=== PATIENT | male | born 1965 | race American Indian/Alaskan Native ===

== ENCOUNTER 2025-09-15 12:39 | Inpatient (IN) | payer MEDICAID ==
[~2025-09-15] VITALS: Ht 170.2 cm; Wt 73.1 kg
[2025-09-15 14:05] VITALS: BP 145/112; PULSE 84; RESP 16; TEMP 98.1; O2SAT 93
[2025-09-15 14:08] VITALS: PULSE 84; RESP 18; O2SAT 98
[2025-09-15] MEDS ORDERED: BICT1TAB PO (14:18)
[2025-09-15] MEDS ORDERED: ATOR20TA50 PO (14:26)
[2025-09-15] MEDS ORDERED: METO-158 PO (14:27)
[2025-09-15] MEDS ORDERED: FURO20TA3 PO (14:28)
[2025-09-15] MEDS ORDERED: LISI-275 PO (14:28)
[2025-09-15] MEDS ORDERED: ASPI-543 PO (14:28)
[2025-09-15] MEDS ORDERED: VANCOMYCIN PER PHARMACY 0 MG IV SCH (15:00)
--- NOTE | 2025-09-15 15:56 | DVH ---
CLINICAL HISTORY: Rule out DVT TECHNIQUE: Color and duplex doppler imagine of the bilateral lower extremity veins was performed. Vessel compression and augmentation if possible was also performed. COMPARISON: US VENOUS EXTREMITY UNILAT on DOS: 03/30/21, US VENOUS EXTREMITY LOWER LTD on DOS: 12/03/20, US-VENOUS EXTREM UNILAT on DOS: 07/08/20 FINDINGS: Right Lower Extremity: Right common femoral vein: Normal compressibility and flow. Right superficial femoral vein: Normal compressibility and flow. Right popliteal vein: Normal compressibility and flow. Left Lower Extremity: Left common femoral vein: Normal compressibility and flow. Left superficial femoral vein: Normal compressibility and flow. Left popliteal vein: Normal compressibility and flow. IMPRESSION: NO SONOGRAPHIC EVIDENCE FOR DEEP VENOUS THROMBOSIS IN THE BILATERAL LOWER EXTREMITY VEINS.
[2025-09-15] MEDS: VANCOMYCIN 1GM/250ML KIT 250 ML IV ONE (15:57)
[2025-09-15 16:07] LABS: Hematocrit 38.3 % (41.0-53.0); Hemoglobin 12.7 g/dL (13.5-17.5); Mean Corpuscular Hemoglobin 32.5 pg (28.0-32.0); Mean Corpuscular Volume 98.2 fL (80.0-100.0); Nucleated Red Blood Cells % 0.1 %
[2025-09-15 17:00] VITALS: BP 170/119; PULSE 87; RESP 17; TEMP 99.6; O2SAT 96
--- NOTE | 2025-09-15 17:28 | DVH ---
CHEST RADIOGRAPH Indication: pre-op Technique: Single frontal view of the chest was obtained COMPARISON: XR CHEST 2 VIEWS on DOS: 08/15/25, XR CHEST 1 VIEW on DOS: 08/10/25, XR CHEST 2 VIEWS on DOS: 07/24/25, XR CHEST 2 VIEWS on DOS: 12/14/24, XR CHEST 1 VIEW on DOS: 02/06/24 FINDINGS: Lines and Tubes: None Lungs: Clear Pleura: No effusion. No pneumothorax. Cardiomediastinal contours: Unremarkable Bones: Unremarkable IMPRESSION: No acute disease.
[2025-09-15 17:58] LABS: Albumin 3.6 g/dL (3.2-4.8); Anion Gap 10 (5-15); BUN/Creatinine Ratio 19.1 (10.0-20.0); Bilirubin, Total 1.1 mg/dL (0.2-1.0); Carbon Dioxide 23 mmol/L (20-31); Glucose 94 mg/dL (74-106); Magnesium 1.7 mg/dL (1.6-2.6); Potassium 4.1 mmol/L (3.5-5.1); Sodium 143 mmol/L (136-145)
[2025-09-15 18:08] LABS: Alanine Aminotransferase 227 U/L (7-40); Alkaline Phosphatase 160 U/L (46-116); Blood Urea Nitrogen 29 mg/dL (9-23); Calcium 8.5 mg/dL (8.7-10.4); Chloride 110 mmol/L (98-107); Total Protein 5.6 g/dL (5.7-8.2)
[2025-09-15] MEDS: ENOXAPARIN SOD 40 MG/0.4 ML SYRINGE SC ONE (19:30)
--- NOTE | 2025-09-15 19:35 | DVHHPRES ---
History of Present Illness Resident Creating Document: ALTON KELLEY RESIDENT History of Present Illness 60-year-old male patient with past medical history of diabetes mellitus type 2, COPD, CHF, CKD, hypertension questionable hyperlipidemia presented to [facility] as a direct admit from Podiatry Clinic. Patient has been visiting Dr. Cristina's clinic for last four months for diabetic foot ulcer on the left side. He has been treated multiple times with courses of antibiotics but had no improvement. Patient went today in the clinic where he was seen by Dr. Cristina and Dr. Weaver referred him to [facility] for I and D which is scheduled tomorrow. He also mentioned of complaint in bilateral lower legs. He denied any chest pain, shortness of breath, fever, chills, nausea, vomiting. Patient has a history of HIV for which he is on anti-retroviral treatment. Past medical history diabetes mellitus type 2, COPD, CHF, CKD, hypertension questionable hyperlipidemia Past surgical history No recent surgery Social history Patient denied current smoking, alcohol, mentioned occasional marijuana, denied any recent recreational drug intake Family history Hypertension, diabetes, heart condition Review of Systems Review of Systems As described in the HPI Allergies: Coded Allergies: Penicillins (Verified Allergy, Mild, RASH, 09/15/25) Medications Current Medications Medications Dose Ordered Sig/Vianca Route Start Time Stop Time Status Last Admin Dose Admin Vancomycin HCl 0 ml @ 0 mls/hr PER PHARMACY IV 09/15/25 15:00 Ceftriaxone Sodium 50 ml @ 100 mls/hr DAILY@09 IV 09/15/25 15:16 Hold Metronidazole 100 ml @ 100 mls/hr Q8HR IV 09/15/25 22:00 Exam Vital Signs Vital Signs Date Time Temp Pulse Resp B/P (MAP) Pulse Ox O2 Delivery O2 Flow Rate FiO2 09/15/25 17:00 99.6 87 17 170/119 (136) 96 99.6 09/15/25 14:08 Room Air* 0 21 Exam Examination General Appearance: Alert, Oriented X3, Cooperative, No acute distress HEENT: EOMI Respiratory: Clear to auscultation, Normal air movement Cardiovascular: Regular rate, Normal S1, Normal S2 Abdominal: Normal bowel sounds Extremities: Bilateral lower leg pain and swelling, 4 cm diabetic foot ulcer on the left foot on the dorsal surface Skin: No rashes, No breakdown Neuro: Normal speech and tone Labs/Xrays Labs Test 09/15/25 17:22 12/5/25 15:45 Range/Units Sodium Level 143 136-145 mmol/L Potassium Level 4.1 3.5-5.1 mmol/L Chloride Level 110 H 98-107 mmol/L Carbon Dioxide Level 23 20-31 mmol/L Anion Gap 10 5-15 Blood Urea Nitrogen 29 H 9-23 mg/dL Creatinine 1.52 H 0.700-1.30 mg/dL Glomerular Filtration Rate Calc 52 >90 mL/min BUN/Creatinine Ratio 19.1 10.0-20.0 Serum Glucose 94 74-106 mg/dL Lactic Acid Level 1.6 0.4-2.0 mmol/L Calcium Level 8.5 L 8.7-10.4 mg/dL Magnesium Level 1.7 1.6-2.6 mg/dL Total Bilirubin 1.1 H 0.2-1.0 mg/dL Aspartate Amino Transferase (AST) 42 H 13-40 U/L Alanine Aminotransferase (ALT) 227 H 7-40 U/L Alkaline Phosphatase 160 H 46-116 U/L Total Protein 5.6 L 5.7-8.2 g/dL Albumin 3.6 3.2-4.8 g/dL White Blood Count 7.2 4.4-10.8 10^3/uL Red Blood Count 3.90 L 4.5-5.90 10^6/uL Hemoglobin 12.7 L 13.5-17.5 g/dL Hematocrit 38.3 L 41.0-53.0 % Mean Corpuscular Volume 98.2 80.0-100.0 fL Mean Corpuscular Hemoglobin 32.5 H 28.0-32.0 pg Mean Corpuscular Hemoglobin Concent 33.1 32.0-36.0 g/dL Red Cell Distribution Width 21.4 H 11.8-14.3 % Platelet Count 167 140-450 10^3/uL Mean Platelet Volume 10.0 6.9-10.8 fL Neutrophils (%) (Auto) 78.1 37.0-80.0 % Lymphocytes (%) (Auto) 11.5 10.0-50.0 % Monocytes (%) (Auto) 8.9 0.0-12.0 % Eosinophils (%) (Auto) 1.1 0.0-7.0 % Basophils (%) (Auto) 0.4 0.0-2.0 % Neutrophils # (Auto) 5.6 1.6-8.6 10 ^3/uL Lymphocytes # (Auto) 0.8 0.4-5.4 10 ^3/uL Monocytes # (Auto) 0.6 0-1.3 10 ^3/uL Eosinophils # (Auto) 0.1 0-0.8 10 ^3/uL Basophils # (Auto) 0 0-0.2 10 ^3/uL Nucleated Red Blood Cells 0.1 % SEPSIS Sepsis Screen Physician Orders * Wound Consult (09/15/25 ) Mrsa Screen (09/15/25 14:57) Admit (09/15/25 14:53) Code Status (09/15/25 14:53) Notify Of Changes From Base (09/15/25 14:53) Paper Sorter And Counter For 24 Hours (09/15/25 14:53) Emergency Dysrhythmia Protocol (09/15/25 14:53) Rhythm Strips Once Every Shift (09/15/25 14:53) Electrocardigram (09/15/25 14:53) Vancomycin Per Pharmacy (09/15/25 15:00) Metronidazole 500mg/100ml (Flagyl 500mg/ (09/15/25 22:00) Chest Xray 1 View (09/15/25 14:53) Bilat Lower Dvt (09/15/25 14:53) Wound Culture W/ Gs (09/15/25 17:39) Blood Culture (09/15/25 17:18) Ceftriaxone 1gm/50ml (Rocephin) (09/15/25 15:16) *Podiatry Consult Ibeth(Dvmg) (09/15/25 17:14) Vancomycin,Random (09/16/25 04:00) Ct L Foot Wo Contrast (09/15/25 19:12) Ct R Foot Wo Contrast (09/15/25 19:12) Ct L Tib Fib Wo Contrast (09/15/25 19:12) Ct R Tib Fib Wo Contrast (09/15/25 19:12) PTPTT (09/15/25 19:19) Urinalysis (09/15/25 19:19) Drug Screen (09/15/25 19:19) Mrsa Screen (09/15/25 19:19) Basic Metabolic Panel (09/16/25 04:00) Complete Blood Count (09/16/25 04:00) Magnesium (09/16/25 04:00) Chest Portable (09/16/25 04:00) Vital Signs Date Time Temp Pulse Resp B/P (MAP) Pulse Ox O2 Delivery O2 Flow Rate FiO2 09/15/25 17:00 99.6 87 17 170/119 (136) 96 99.6 09/15/25 14:08 84 18 98 Room Air* 0 21 09/15/25 14:05 98.1 84 16 145/112 (123) 93 98.1 09/15/25 14:05 98.1 84 16 145/112 (123) 93 98.1 Laboratory Tests Test 09/15/25 15:45 09/15/25 17:22 White Blood Count 7.2 10^3/uL (4.4-10.8) Lactic Acid Level 1.6 mmol/L (0.4-2.0) Medications Medications Dose Ordered Sig/Vianca Route Start Time Stop Time Status Last Admin Dose Admin Metronidazole 100 ml @ 100 mls/hr ONCE ONCE IV 09/15/25 15:00 09/15/25 15:59 DC 09/15/25 15:58 100 MLS/HR Vancomycin HCl 250 ml @ 250 mls/hr ONCE ONCE IV 09/15/25 15:00 09/15/25 15:59 DC 09/15/25 15:57 250 MLS/HR Assessment/Plan Assessment/Plan Assessment/plan # bilateral lower leg cellulitis, purulent # left foot diabetic foot ulcer IV fluids IV antibiotics MRSA screen Podiatry consult Bilateral lower extremity venous ultrasound to rule out DVT CT bilateral feet # stainable LUCRECIA, CKD stage IIIA -monitor function -IV fluids Hold lisinopril as of now, if patient is at baseline creatinine/GFR, can resume lisinopril # Transaminitis Liver ultrasound Creatinine kinase # history of HIV Resume home meds # diabetes mellitus type 2 Keep blood glucose between 140-180 Accu-Cheks q.6/a.c. HS Sliding scale insulin Diabetic diet: Consistent carbohydrate # CHF, stable -resume home meds # COPD, stable -albuterol prn # hypertension Resume home meds # hyperlipidemia Resume home meds Code status discussed with the patient for greater than 23 min, full code Case discussion with Dr. Yo Plan discussed with: Patient, Other My Orders Orders - ALTON KELLEY RESIDENT Procedure Category Date Status Time Admit ADMIT 09/15/25 Transmitted 14:53 Code Status CODE 09/15/25 Transmitted 14:53 Notify Of Changes [facility] 09/15/25 In Process From Base 14:53 Paper Sorter And Counter For [facility] 09/15/25 In Process 24 Hours 14:53 Emergency Dysrhythmia [facility] 09/15/25 In Process Protocol 14:53 Rhythm Strips Once [facility] 09/15/25 In Process Every Shift 14:53 Electrocardigram EKG 09/15/25 Logged 14:53 Vancomycin Per [facility] 09/15/25 In Process Pharmacy 15:00 Metronidazole [facility] 09/15/25 In Process 500mg/100ml (Flagyl 22:00 Chest Xray 1 View XY 09/15/25 Resulted 14:53 Bilat Lower Dvt US 09/15/25 Resulted 14:53 Wound Culture W/ Gs [facility] 09/15/25 In Process 17:39 Blood Culture [facility] 09/15/25 In Process 17:18 Ceftriaxone 1gm/50ml [facility] 09/15/25 In Process (Rocephin) 15:16 *Podiatry Consult CONS 09/15/25 Transmitted Musson(Dvmg) 17:14 Vancomycin,Random LAB 09/16/25 Verified 04:00 Ct L Foot Wo Contrast CT 09/15/25 Logged 19:12 Ct R Foot Wo Contrast CT 09/15/25 Logged 19:12 Ct L Tib Fib Wo CT 09/15/25 Logged Contrast 19:12 Ct R Tib Fib Wo CT 09/15/25 Logged Contrast 19:12 PTPTT LAB 09/15/25 Verified 19:19 Urinalysis LAB 09/15/25 Verified 19:19 Drug Screen LAB 09/15/25 Verified 19:19 Mrsa Screen ADELITA 09/15/25 Uncollected 19:19 Basic Metabolic Panel LAB 09/16/25 Verified 04:00 Complete Blood Count LAB 09/16/25 Verified 04:00 Magnesium LAB 09/16/25 Verified 04:00 Chest Portable XY 09/16/25 Verified 04:00 Date of Service: Sep 15, 2025 Billing Provider: ROLAN TOBIAS MD Common Visit Codes: [id number] INP/OBS CARE (HIGH) Secondary Visit Codes: [id number] CARE PLAN 30 MINUTES ALTON KELLEY RESIDENT Sep 15, 2025 19:35
[2025-09-15 20:02] LABS: INR 1.15 (0.9-1.15); Partial Thromboplastin Time 30.2 SEC (24.5-34.5); Prothrombin Time 12.0 sec (9.3-11.8)
[2025-09-15] MEDS ORDERED: DEXTROSE (50%) 50ML SYRG IV PRN (20:30)
--- NOTE | 2025-09-15 20:37 | DVH ---
EXAM: US LIVER HISTORY: Transaminitis COMPARISON: US ABDOMEN LIMITED on DOS: 08/10/25 TECHNIQUE: Multiple longitudinal and transverse sonographic images of the abdomen were obtained. Doppler was applied as indicated. FINDINGS: [PANCREAS]: The visualized portions of the pancreas are unremarkable. [AORTA]: Normal [LIVER]: 16.8 cm. heterogeneous and coarsened echotexture. There is no focal hepatic mass lesion detected. [GALLBLADDER]: Gallbladder wall measures 0.3 cm. 6 mm hypoechoic structure along the gallbladder wall which may represent adherent cholelithiasis versus gallbladder polyp. No vascular stalk. There is no sonographic Morley sign. [BILIARY TREE]: Common bile duct measures 0.4 cm in diameter. no intrahepatic biliary ductal dilatation. [ASCITES]: No free fluid is demonstrated. [VESSELS]: The main portal vein is patent on color Doppler evaluation. The inferior vena cava is patent on color Doppler evaluation. [RIGHT KIDNEY]: 9.7 cm. normal cortical echogenicity and normal contour. No hydronephrosis. IMPRESSION: 1. Heterogeneous coarsened echotexture of the liver which may reflect underlying chronic liver disease.
[2025-09-15 21:00] VITALS: BP 154/112; PULSE 112; RESP 18; TEMP 98.6; O2SAT 93
[2025-09-15] MEDS: MAGNESIUM OXIDE 400 MG TAB PO ONE (21:02)
[2025-09-15] MEDS: SODIUM CHLORIDE 0.9% 500 ML IV ONE (21:04)
[2025-09-15] MEDS: ATORVASTATIN 20 MG TAB PO SCH (22:37)
[2025-09-15 23:07] LABS: Urine Protein, UAD 2+ (Negative)
[2025-09-15 23:19] LABS: Opiate Scree,Urine Pos (NEGATIVE)
[2025-09-15 23:20] LABS: Amphetamine Screen, Urine Pos (NEGATIVE); Barbiturate Scree,Urine Neg (NEGATIVE); Benzodiazephine Screen, Urine Neg (NEGATIVE); Cannabinoid Screen, Urine Pos (NEGATIVE); Cocaine Screen, Urine Pos (NEGATIVE); Phencyclidine Screen, Urine Neg (NEGATIVE)
[2025-09-15] MEDS: InsuLIN REG 1unit/0.01ml Soln (100units/ml) SC SCH (23:26)
[2025-09-15] MEDS: ACCU-CHEK COMFORT CURVE STRIP VI SCH (23:26)
[2025-09-16 01:00] VITALS: BP 164/100; PULSE 95; RESP 18; TEMP 98.9; O2SAT 93
[2025-09-16] MEDS: HYDROcodone-ACET 5/325MG TAB PO ONE (01:05)
[2025-09-16 05:00] VITALS: BP 160/122; PULSE 92; RESP 18; TEMP 97.6; O2SAT 94
[2025-09-16 08:00] LABS: Hematocrit 37.2 % (41.0-53.0); Hemoglobin 12.2 g/dL (13.5-17.5); Mean Corpuscular Hemoglobin 31.9 pg (28.0-32.0); Mean Corpuscular Volume 97.3 fL (80.0-100.0); Nucleated Red Blood Cells % 0.1 %
[2025-09-16 08:53] LABS: Anion Gap 13 (5-15); Calcium 8.4 mg/dL (8.7-10.4); Carbon Dioxide 20 mmol/L (20-31); Chloride 108 mmol/L (98-107); Potassium 4.2 mmol/L (3.5-5.1); Sodium 141 mmol/L (136-145)
[2025-09-16 08:58] LABS: Glucose 100 mg/dL (74-106)
[2025-09-16 08:59] LABS: BUN/Creatinine Ratio 19.6 (10.0-20.0)
[2025-09-16 09:00] VITALS: BP 168/128; PULSE 98; RESP 19; TEMP 98.1; O2SAT 94
[2025-09-16 09:00] LABS: Magnesium 1.7 mg/dL (1.6-2.6)
[2025-09-16 09:01] LABS: Blood Urea Nitrogen 28 mg/dL (9-23)
[2025-09-16] MEDS: FUROSEMIDE 20 MG TAB PO SCH (09:13)
[2025-09-16] MEDS: METOPROLOL SUCCINATE XL 50 MG TAB PO SCH (09:14)
--- NOTE | 2025-09-16 09:19 | DVH ---
CLINICAL HISTORY: cellultiis TECHNIQUE: CT of the left lower extremity was performed from the lower femur through the foot without intravenous contrast. This exam was performed according to our departmental dose optimization program. Up-to-date CT equipment and radiation dose reduction techniques are utilized as appropriate. CTDI 8 mGy DLP 1036 mGy.cm COMPARISON: CT LOWER EXT LEFT on DOS: 08/28/25 FINDINGS: There is extensive soft tissue swelling. No definite discrete fluid collection is seen. No acute fracture or dislocation is evident. There is no periosteal reaction or erosive changes. There are mild tricompartmental degenerative changes with osteophyte formation. There is a small to moderate knee joint effusion. IMPRESSION: Extensive cellulitis. Small to moderate joint effusion.
--- NOTE | 2025-09-16 09:42 | DVH ---
CLINICAL HISTORY: cellulitis TECHNIQUE: CT of the right lower extremity was performed from the lower femur through the foot without intravenous contrast. This exam was performed according to our departmental dose optimization program. Up-to-date CT equipment and radiation dose reduction techniques are utilized as appropriate. CTDI 7.8 mGy DLP 1036 mGy.cm COMPARISON: CT LEFT LOWER EXTREMITY W/O CON on DOS: 09/16/25, US BILAT LOWER DVT on DOS: 09/15/25, CT LOWER EXT LEFT on DOS: 08/28/25, RIGHT XR TIBIA/FIBULA 2 VIEWS on DOS: 09/15/24, RIGHT XR FEMUR 2 VIEWS on DOS: 09/15/24 FINDINGS: There is extensive soft tissue swelling. No definite discrete fluid collection is seen. No acute fracture or dislocation is evident. There is no periosteal reaction or erosive changes. There are minimal tricompartmental degenerative changes with osteophyte formation. There is a small to moderate knee joint effusion. IMPRESSION: Extensive cellulitis. Small to moderate joint effusion.
[2025-09-16] MEDS ORDERED: ASPirin-EC 81 mg tab PO SCH (10:00)
[2025-09-16] MEDS ORDERED: LISINOPRIL 5 MG TAB PO SCH (10:00)
[2025-09-16 13:00] VITALS: BP 165/124; PULSE 90; RESP 17; TEMP 99.1; O2SAT 94
[2025-09-16] MEDS: VANCOMYCIN 750MG KIT 100 ML IV SCH (14:17)
[2025-09-16 17:31] VITALS: BP 148/115; PULSE 88; RESP 17; TEMP 99.2; O2SAT 94
[2025-09-16] MEDS ORDERED: HALOPERIDOL LACTATE 5 MG/ML INJ VIAL IM PRN (18:00)
--- NOTE | 2025-09-16 18:03 | DVHPN2 ---
Subjective pain is better//no other complaints Changes from previous H/P or p: No Changes Objective Vitals Vital Signs Date Time Temp Pulse Resp B/P (MAP) Pulse Ox O2 Delivery O2 Flow Rate FiO2 09/16/25 17:31 99.2 88 17 148/115 (126) 94 99.2 09/16/25 08:28 Room Air* 0 21 Intake/Output Intake and Output 09/16/25 06:59 Intake Total 1000 ml Output Total 450 ml Balance 550 ml Intake Oral 950 ml IV Total 50 ml Output Urine Total 450 ml # Voids 2 General Appearance: Alert, Oriented X3, Cooperative, No acute distress Cardiovascular: Regular rate, Normal S1, Normal S2 Abdomen: Normal bowel sounds, Soft, No tenderness, No hepatospenomegaly Musculoskeletal: Normal sensory function, Normal motor function Extremities: Other (superficial ulcers leg/worse left) Neuro: Normal gait, Normal speech, Strength at 5/5 X4 ext, Normal tone, S ensation intact, Cranial nerves 3-12 NL, Reflexes 2+ Psych/Mental Status: Mental status NL, Mood NL Medications Current Medications Medications Dose Ordered Sig/Vianca Route Start Time Stop Time Status Last Admin Dose Admin Vancomycin HCl 0 ml @ 0 mls/hr PER PHARMACY IV 09/15/25 15:00 Metronidazole 100 ml @ 100 mls/hr Q8HR IV 09/15/25 22:00 09/16/25 14:12 100 MLS/HR Ceftriaxone Sodium 50 ml @ 100 mls/hr DAILY@09 IV 09/15/25 19:30 09/16/25 09:13 100 MLS/HR Atorvastatin Calcium 20 mg HS PO 09/15/25 22:00 09/15/25 22:37 20 MG Furosemide 20 mg DAILY PO 09/16/25 10:00 09/16/25 09:13 20 MG Metoprolol Succinate 50 mg DAILY PO 09/16/25 10:00 09/16/25 09:14 50 MG Patient Own Medication 1 tab DAILY PO 09/16/25 10:00 Diagnostic Test (Pha) 1 strip Q6HR 09/16/25 00:00 09/16/25 12:44 1 STRIP Insulin Human Regular Q6HR SC 09/16/25 00:00 Dextrose 50 ml UD PRN IV 09/15/25 20:30 Vancomycin HCl 100 ml @ 100 mls/hr Q18H IV 09/16/25 14:00 12/6/25 14:17 100 MLS/HR Laboratory Results Laboratory Tests 09/16/25 06:49 Chemistry Test 09/16/25 06:49 Calcium Level 8.4 mg/dL (8.7-10.4) L Magnesium Level 1.7 mg/dL (1.6-2.6) Urinalysis Test 09/15/25 22:51 Urine Color Yellow (Yellow) Urine Clarity Clear (Clear) Urine pH 5.5 (5.0-9.0) Urine Specific [place] 1.028 (1.001-1.035) Urine Protein 2+ (Negative) H Urine Ketones Trace (Negative) Urine Blood Negative /uL (Negative) Urine Nitrite Negative (Negative) Urine Bilirubin Negative (Negative) Urine Urobilinogen 2 mg/dL (Negative) H Urine Leukocyte Esterase Negative /uL (Negative) Urine RBC 1 /hpf (0 - 3) Urine Microscopic WBC 1 /HPF (0-3) Urine Squamous Epithelial Cells Few /hpf (<5) Urine Bacteria None seen /hpf (None Seen) Urine Mucus Few (None Seen) Urine Glucose 1+ mg/dL (Normal) H Microbiology Microbiology Date/Time Source Procedure Growth Status 09/15/25 17:30 Foot Gram Stain - Final Resulted 09/15/25 17:30 Foot Wound Culture - Preliminary Resulted Labs and/or images reviewed: Labs reviewed by me, Image(s) reviewed by me Assessment/Plan Assessment/Plan cellulitis/ulcer legs- antibiotics as written/podiatry and wound care on board/culture shows gram negative- multiple drug abuse- watch for withdrawl h/o dm- now in good control htn- baseline and from withdrawl Plan discussed with: Patient, Other My Orders Orders - DEMETRIO MAYORGA MD Procedure Category Date Status Time Apply: PILLO 09/16/25 In Process 12:07 Date of Service: Sep 16, 2025 Billing Provider: DEMETRIO MAYORGA MD Common Visit Codes: [id number] INP/OBS CARE(MOD) DEMETRIO MAYORGA MD Sep 16, 2025 18:03
[2025-09-16 21:00] VITALS: BP 127/98; PULSE 77; RESP 18; TEMP 98.9; O2SAT 93
[2025-09-17] MEDS: hydrALAZINE HCL 20 MG/ML VL IV PRN (00:41)
[2025-09-17 01:00] VITALS: BP 158/120; PULSE 74; RESP 18; TEMP 98.8; O2SAT 94
[2025-09-17 05:00] VITALS: BP 169/135; PULSE 80; RESP 18; TEMP 98.9; O2SAT 97
[2025-09-17 09:00] VITALS: BP 170/132; PULSE 83; RESP 20; TEMP 98.3; O2SAT 94
== END 2025-09-17 11:00 | disposition left against medical advice (07) | DRG 420 ==
LOC: EAST 13:54
PROVIDERS: ADMIT Nurse Practitioner Family; ATTEND Nurse Practitioner Family
DX: E11.621 Type 2 diabetes mellitus with foot ulcer (principal); I50.9 Heart failure, unspecified; I13.0 Hypertensive heart and chronic kidney disease with heart failure and stage 1 through stage 4 chronic kidney disease, or unspecified chronic kidney disease; L03.115 Cellulitis of right lower limb; N17.9 Acute kidney failure, unspecified; L03.116 Cellulitis of left lower limb; J44.9 Chronic obstructive pulmonary disease, unspecified; E11.22 Type 2 diabetes mellitus with diabetic chronic kidney disease; N18.31 Chronic kidney disease, stage 3a; E78.5 Hyperlipidemia, unspecified; R74.01 Elevation of levels of liver transaminase levels; Z53.29 Procedure and treatment not carried out because of patient's decision for other reasons; Z88.0 Allergy status to penicillin
CPT/HCPCS: 36415; 71045; 73700; 76705; 80048; 80053; 80202; 80307; 81001; 82550; 82962; 83036; 83605; 83735; 85025; 85610; 85730; 87040; 87077; 87081; 87186; 87205; 93970; G0378; J3490